=== PATIENT | female | born 2000 | race Caucasian/White ===

== ENCOUNTER 2018-05-26 06:31 | Emergency (ER) | payer OTHER ==
[~2018-05-26] VITALS: Ht 182.9 cm; Wt 52.2 kg
[~2018-05-26 06:31] MED LIST: ACETAMINOPHEN-1 EAC1 PO; CARBAMAZEPINE100 M3 PO; CITRATE OF MAG296 ML PO; CYMBALTA20 MG PO; DIPHENHIST50 MG PO; EPIPEN 2-P0.3 MG/0.3 IM; EQUETRO300 MG PO; LATUDA60 MG; LEVSIN0.125 MG PO; MEDROLDOSEPACK PO; NEURONTIN300 MG PO; PREDNISONE 10 M10 MG PO; ROBAXIN500 MG PO; TRILEPTAL150 MG PO; VISTARIL50 MG PO; ZYPREXA 2.2.5 MG/1 T PO; ZYPREXA5 MG PO; ZYPREXA7.5 MG
[2018-05-26] MEDS ORDERED: INVEGA (06:38)
[2018-05-26] MEDS ORDERED: DEPAKOTE (06:38)
[2018-05-26] MEDS ORDERED: CLONAZEPAM (06:38)
[2018-05-26 06:51] LABS: ABSOLUTE EOSINOPHILS 0.1 thou/uL (0.0-0.7); ABSOLUTE MONOCYTES 0.7 thou/uL (0.0-1.2); ABSOLUTE NEUTROPHILS 5.7 thou/uL (1.6-8.1); BASOPHILS 0.6 %; EOSINOPHILS 0.8 %; HEMATOCRIT 37.8 % (37.0-47.0); HEMOGLOBIN 12.6 gm/dL (12.0-15.0); LYMPHOCYTES 23.5 %; MCH 28.3 pg (26.0-34.0); MCHC 33.3 g/dL (28.0-37.0); MCV 84.9 fL (80.0-100.0); MONOCYTES 8.6 %; MPV 9.3 fl. (7.2-11.1); NUCLEATED RBCS 0 /100WBC; PLATELET COUNT* 182 thou/uL (150-400); POLYS 66.5 %; RBC 4.46 mil/uL (4.20-5.00); RDW-CV 14.6 % (10.5-14.5); WBC 8.5 thou/uL (4.0-11.0)
[2018-05-26 07:03] LABS: ANION GAP 7 mmol/L (7-16); BUN 17 mg/dL (7-18); CALCIUM 9.4 mg/dL (8.5-10.1); CHLORIDE 102 mmol/L (98-107); CO2 29 mmol/L (21-32); CREATININE 0.6 mg/dL (0.6-1.3); GLUCOSE 86 mg/dL (70-99); INR 1.1; POTASSIUM 3.4 mmol/L (3.5-5.1); PROTIME 11.1 Seconds (9.20-11.50); SODIUM 138 mmol/L (136-145)
[2018-05-26 07:10] LABS: ALBUMIN 3.8 g/dL (3.4-5.0); ALKALINE PHOSPHATASE 61 U/L (46-116); LIPASE 140 U/L (73-393); NT-PRO BRAIN NAT PEPTIDE 67 pg/mL (<300); SGOT 21 U/L (15-37); SGPT 25 U/L (30-65); TOTAL BILIRUBIN 0.6 mg/dL (<0.1-1.0); TOTAL PROTEIN 7.5 g/dL (6.4-8.2); TROPONIN-I LEVEL <0.06 ng/mL (<0.06)
[2018-05-26 07:26] VITALS: BP 96/53
--- NOTE | 2018-05-26 11:56 | EKG ---
[place] [address] ELECTROCARDIOGRAM REPORT Name: VANI DAILEY Room: [facility]#: [id number] Admission: 05/26/18 Attend Phys: Discharge: 05/26/18 Date of : [birth year] Report #: [id number] THIS REPORT FOR: //name// [facility] ED Test Date: 2018-05-26 Test Time: 06:35:58 Pat Name: VANI DAILEY Department: Room: Gender: F Medical Esthetician: NITYHA : 2000 Requested By: Manolo Patel Order Number: [id number] MD: Bin Perez Measurements Intervals [place] Rate: 60 P: 2 IA: 140 QRS: 91 QRSD: 91 T: 48 QT: 411 QTc: 411 Interpretive Statements Sinus rhythm Consider right ventricular hypertrophy No previous ECG available for comparison Electronically Signed On 05-26-2018 11:55:59 CDT by Bin Perez [email or web address] <ELECTRONICALLY SIGNED> By: Bin Perez MD, FACC 05/26/18 1155 [id number] 0635 Bin Perez MD, FAC /EPI
== END 2018-05-26 07:26 | disposition home or self-care (01) ==
LOC: M.ERS 06:31
PROVIDERS: Emergency Medicine
DX: R07.89 Other chest pain (principal); F41.9 Anxiety disorder, unspecified; F31.9 Bipolar disorder, unspecified; M79.7 Fibromyalgia; F17.210 Nicotine dependence, cigarettes, uncomplicated; Z90.49 Acquired absence of other specified parts of digestive tract; Z88.8 Allergy status to other drugs, medicaments and biological substances; Z91.013 Allergy to seafood

== ENCOUNTER 2018-12-03 13:05 | Emergency (ER) | payer OTHER ==
[~2018-12-03] VITALS: Ht 170.2 cm; Wt 63.5 kg
[~2018-12-03 13:05] MED LIST changes: +CLONAZEPAM; +DEPAKOTE; +INVEGA
[2018-12-03] MEDS ORDERED: NORCO 5-325 TA1 EAC1 PO (13:24)
[2018-12-03] MEDS ORDERED: PENICILLIN VK250 MG PO (13:24)
[2018-12-03] MEDS ORDERED: VISTARIL 25 MG25 M1 PO (13:24)
[2018-12-03 13:30] VITALS: BP 128/77
== END 2018-12-03 13:30 | disposition home or self-care (01) ==
LOC: M.ERS 13:05
DX: S02.5XXA Fracture of tooth (traumatic), initial encounter for closed fracture (principal); F31.9 Bipolar disorder, unspecified; F41.9 Anxiety disorder, unspecified; M79.7 Fibromyalgia; Z90.49 Acquired absence of other specified parts of digestive tract; F17.210 Nicotine dependence, cigarettes, uncomplicated; Z88.8 Allergy status to other drugs, medicaments and biological substances; X58.XXXA Exposure to other specified factors, initial encounter; Y93.89 Activity, other specified; Y92.89 Other specified places as the place of occurrence of the external cause; Y99.8 Other external cause status

== ENCOUNTER 2021-05-21 14:35 | Emergency (ER) | payer OTHER ==
[~2021-05-21] VITALS: Ht 182.9 cm; Wt 61.2 kg
[~2021-05-21 14:35] MED LIST changes: +NORCO 5-325 TA1 EAC1 PO; +PENICILLIN VK250 MG PO; +VISTARIL 25 MG25 M1 PO
[2021-05-21] MEDS ORDERED: TESTOSTERON100 MG/ML IM (14:48)
[2021-05-21 15:52] LABS: URINE BLOOD TRACE (Negative); URINE CLARITY CLEAR; URINE COLOR YELLOW; URINE GLUCOSE-RANDOM NEGATIVE (Negative); URINE KETONES TRACE (Negative); URINE LEUKOCYTES-REFLEX TRACE (Negative); URINE NITRITE-REFLEX NEGATIVE (Negative); URINE PROTEIN NEGATIVE (Negative); URINE SPECIFIC GRAVITY >= 1.030 (1.005-1.030); URINE UROBILINOGEN 0.2 E.U./dl (0.2-1.0)
[2021-05-21 15:54] LABS: ICTOTEST (BILI CONFIRMATORY) Negative (Negative); URINE BILIRUBIN 1+ (Negative)
[2021-05-21 16:01] LABS: ABSOLUTE EOSINOPHILS 0.4 thou/uL (0.0-0.7); ABSOLUTE LYMPHOCYTES 1.8 thou/uL (0.8-5.3); ABSOLUTE MONOCYTES 0.6 thou/uL (0.0-1.2); ABSOLUTE NEUTROPHILS 3.3 thou/uL (1.6-8.1); BASOPHILS 0.6 %; HEMATOCRIT 43.4 % (37.0-47.0); HEMOGLOBIN 14.4 gm/dL (12.0-15.0); LYMPHOCYTES 29.1 %; MCH 27.4 pg (26.0-34.0); MCHC 33.1 g/dL (28.0-37.0); MCV 82.7 fL (80.0-100.0); MONOCYTES 9.3 %; MPV 9.4 fl. (7.2-11.1); NUCLEATED RBCS 0 /100WBC; PLATELET COUNT* 206 thou/uL (150-400); RBC 5.25 mil/uL (4.20-5.00); RDW-CV 15.1 % (10.5-14.5); WBC 6.1 thou/uL (4.0-11.0)
[2021-05-21 16:10] LABS: BACTERIA-REFLEX 1-9 Few /HPF (None Seen); CASTS None Seen /LPF (None Seen); CRYSTALS None Seen /LPF (None Seen); MUCUS 4-6 Moderate strn/LPF (None Seen); SQUAMOUS >10 Many /LPF (0-3); URINE RBC 0-2 Rare /HPF (0-2); URINE WBC-REFLEX 0-5 Rare /HPF (0-5)
[2021-05-21 16:11] LABS: CREATININE 0.8 mg/dL (0.6-1.3); POTASSIUM 3.7 mmol/L (3.5-5.1)
[2021-05-21 16:15] LABS: TOTAL BILIRUBIN 2.9 mg/dL (<0.1-1.0); TOTAL PROTEIN 7.8 g/dL (6.4-8.2)
[2021-05-21] MEDS ORDERED: ZOFRAN ODT4 MG PO (20:07)
[2021-05-21] MEDS ORDERED: DICYCLOMINE HCL20 MG PO (20:07)
[2021-05-21 20:17] VITALS: BP 103/54
== END 2021-05-21 20:17 | disposition home or self-care (01) ==
LOC: M.ERS 14:35
PROVIDERS: Nurse Practitioner Family
DX: K52.9 Noninfective gastroenteritis and colitis, unspecified (principal); R74.01 Elevation of levels of liver transaminase levels; F41.9 Anxiety disorder, unspecified; F31.9 Bipolar disorder, unspecified; M79.7 Fibromyalgia; F17.210 Nicotine dependence, cigarettes, uncomplicated; F12.90 Cannabis use, unspecified, uncomplicated; Z79.899 Other long term (current) drug therapy; Z88.8 Allergy status to other drugs, medicaments and biological substances; Z91.013 Allergy to seafood